=== PATIENT | male | born 1970 | race Caucasian/White ===

== ENCOUNTER 2016-10-24 04:54 | Inpatient (IN) | payer BC ==
--- NOTE | ~2016-10-24 | HP ---
History And Physical [id number] [place]. [address] NAME: MAY LEE : 66 STATUS : ADM IN [facility]#: [id number] AGE: 46 ADM/REG DATE : 10/24/16 MR#: [id number] REPORT SERV DATE: 10/24/16 DICTATED BY: ORLANDO ORONA DATE: 10/24/16 REPORT STATUS : Draft TRANSCRIBED BY: MODYaquelin DATE: 10/24/16 DATE OF ADMISSION: 10/24/2016 CARDIOLOGY ADMISSION HISTORY AND PHYSICAL IDENTIFYING DATA: The patient is a 46-year-old man with no previous cardiovascular history. CHIEF COMPLAINT: Waxing and waning chest pain since last Sunday with abrupt worsening early this morning. HISTORY OF PRESENT ILLNESS: Mr. Lee is a 46-year-old man with no previous cardiovascular history. He was in his usual state of health until about last Sunday. The patient began to notice a substernal chest pain associated with generalized fatigue. This apparently worsened when the patient was working and lifting heavy objects. The patient did not immediately seek medical attention; however, the pain progressively worsened until it became very severe early this morning. The patient reports a 10/10, left-sided, and substernal chest pain which had a heaviness component associated with a sharp pain between his shoulder blades. This prompted an emergency room visit to [facility]. There, the patient's initial 12-lead EKG showed ST-segment depression in the precordial leads. The patient's pain was not relieved with medical therapy. He later developed inferior ST-segment elevation. DICTATION ENDS HERE. KAMILLE/CHADWICK Orlando Orona MD / [id number] CC: Orlando Orona MD
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
[2016-10-24 09:24] LABS: CK-MB 75.4 NG/ML
[2016-10-24 09:25] LABS: CKMB INDEX (NOT ORD) 9.5; TROPONIN I 10.8 NG/ML (<0.05)
[2016-10-24 15:25] LABS: A/G RATIO 1.1 (0.7-1.9); ALBUMIN 3.1 G/DL (3.5-5.0); ALKALINE PHOSPHATASE 68 U/L (45-117); BUN (BLOOD UREA NITROGEN) 7 MG/DL (6-23); CALCIUM, SERUM 8.2 MG/DL (8.5-10.4); CHLORIDE, SERUM 109 MMOL/L (96-112); CO2 (CARBON DIOXIDE) 22 MMOL/L (24-34); CREATININE 0.93 MG/DL (0.70-1.30); FREE T4 1.07 NG/DL (0.76-1.46); GFR AFRICAN AMERICAN 112 ML/MIN (>=60); GFR NON AFRICAN AMERICAN 97 ML/MIN (>=60); GLOBULIN 2.7 G/DL (2.5-4.1); GLUCOSE, SERUM 100 MG/DL (60-99); SGPT(ALT) 27 U/L (5-65); SODIUM, SERUM 140 MMOL/L (135-148); TOTAL BILIRUBIN 0.5 MG/DL (0-1.2); TOTAL PROTEIN 5.8 G/DL (6.0-8.5)
[2016-10-24 15:26] LABS: POTASSIUM, SERUM 4.5 MMOL/L (3.5-5.3); SGOT(AST) 157 U/L (5-40)
[2016-10-24 18:29] LABS: BASOPHILS 0.3 %; BASOPHILS ABSOLUTE 0.03 10/3/uL (0.0-0.16); EOSINOPHILS 2.3 %; HEMATOCRIT 38.6 % (40.0-51.0); HEMOGLOBIN 13.1 g/dL (13.6-17.8); LYMPHOCYTES 30.2 %; LYMPHOCYTES ABSOLUTE 2.66 10/3/uL (0.67-4.30); MANUAL DIFF NO %; MEAN CORPUS HGB CONC 33.9 g/dL (32.0-36.0); MEAN CORPUSCULAR HEMOGLOB 30.8 pg (26.0-34.0); MEAN CORPUSCULAR VOLUME 90.6 fL (80-100); MEAN PLATELET VOLUME 10.6 fL (9.2-13.0); MONOCYTES 7.5 %; MONOCYTES ABSOLUTE 0.66 10/3/uL (0.21-1.20); NEUTROPHILS 59.7 %; NEUTROPHILS ABSOLUTE 5.26 10/3/uL (2.02-8.40); PLATELET COUNT 181 10/3/uL (150-400); RBC DISTRIBUTION WIDTH 13.8 % (12.0-16.0); RED CELL COUNT 4.26 10/6/uL (4.7-6.1); WHITE BLOOD CELLS 8.8 10/3/uL (4.5-10.5)
[2016-10-24] MEDS ORDERED: APPLE CIDER VINEGAR PO (18:55)
[2016-10-24 18:58] LABS: CK-MB 137.5 NG/ML
[2016-10-24 19:00] LABS: CKMB INDEX (NOT ORD) 9.2; TROPONIN I 39.4 NG/ML (<0.05)
[2016-10-25 01:30] LABS: BASOPHILS 0.3 %; BASOPHILS ABSOLUTE 0.02 10/3/uL (0.0-0.16); EOSINOPHILS 2.4 %; EOSINOPHILS ABSOLUTE 0.17 10/3/uL (0.0-0.53); HEMATOCRIT 36.2 % (40.0-51.0); HEMOGLOBIN 12.3 g/dL (13.6-17.8); IMMATURE GRANULOCYTES 0.1 %; IMMATURE GRANULOCYTES ABSOLUTE 0.01 10/3/uL (0.0-0.11); LYMPHOCYTES 33.9 %; LYMPHOCYTES ABSOLUTE 2.38 10/3/uL (0.67-4.30); MEAN CORPUSCULAR HEMOGLOB 30.6 pg (26.0-34.0); MEAN PLATELET VOLUME 10.8 fL (9.2-13.0); MONOCYTES 8.1 %; MONOCYTES ABSOLUTE 0.57 10/3/uL (0.21-1.20); NEUTROPHILS 55.2 %; NEUTROPHILS ABSOLUTE 3.88 10/3/uL (2.02-8.40); PLATELET COUNT 181 10/3/uL (150-400); RED CELL COUNT 4.02 10/6/uL (4.7-6.1)
[2016-10-25 01:34] LABS: MANUAL DIFF NO %
[2016-10-25 01:50] LABS: BUN (BLOOD UREA NITROGEN) 9 MG/DL (6-23); CALCIUM, SERUM 7.9 MG/DL (8.5-10.4); CHLORIDE, SERUM 106 MMOL/L (96-112); CHOL/HDL RATIO(NOT ORDER) 5.3 (0-5); CHOLESTEROL 176 MG/DL (< 200); CK-MB 74.1 NG/ML; CPK 988 U/L (0-200); GFR AFRICAN AMERICAN 117 ML/MIN (>=60); GFR NON AFRICAN AMERICAN 101 ML/MIN (>=60); GLUCOSE, SERUM 105 MG/DL (60-99); HDL CHOLESTEROL 33 MG/DL (> 39); LDL CHOLESTEROL 109 MG/DL (< 130); NON-HDL CHOLESTEROL 143 MG/DL (< 160); POTASSIUM, SERUM 3.9 MMOL/L (3.5-5.3); SODIUM, SERUM 141 MMOL/L (135-148); TRIGLYCERIDE 174 MG/DL (< 150)
[2016-10-25 01:51] LABS: CKMB INDEX (NOT ORD) 7.5; CO2 (CARBON DIOXIDE) 29 MMOL/L (24-34)
[2016-10-25 09:28] LABS: CK-MB 47.7 NG/ML
[2016-10-25 09:30] LABS: CKMB INDEX (NOT ORD) 6.3
[2016-10-25] MEDS ORDERED: ASAB PO (16:40)
[2016-10-25] MEDS ORDERED: LIPITOR40 PO (16:40)
[2016-10-25] MEDS ORDERED: EFFIENT10 PO (16:40)
[2016-10-25] MEDS ORDERED: LOP25 PO (16:41)
== END 2016-10-25 16:45 | disposition home or self-care (01) | DRG 247 ==
LOC: SSU2 04:54 → CVICU 07:53
PROVIDERS: Internal Medicine Cardiovascular Disease
PROC: 4A023N7 Measurement of Cardiac Sampling and Pressure, Left Heart, Percutaneous Approach (ICD-10-PCS; principal; 2016-10-24)
PROC: B2111ZZ Fluoroscopy of Multiple Coronary Arteries using Low Osmolar Contrast (ICD-10-PCS; 2016-10-24)
PROC: B2151ZZ Fluoroscopy of Left Heart using Low Osmolar Contrast (ICD-10-PCS; 2016-10-24)
PROC: 027034Z Dilation of Coronary Artery, One Artery with Drug-eluting Intraluminal Device, Percutaneous Approach (ICD-10-PCS; 2016-10-24)
DX: I21.11 ST elevation (STEMI) myocardial infarction involving right coronary artery (principal); F17.210 Nicotine dependence, cigarettes, uncomplicated; I25.10 Atherosclerotic heart disease of native coronary artery without angina pectoris; I49.8 Other specified cardiac arrhythmias
CPT/HCPCS: 71010; 80048; 80053; 80061; 82550; 82553; 83735; 84439; 84443; 84484; 85025; 85347; 93005; 93458; 99152; 99153; A9270-GY; C1725; C1769; C1874; C1887; C1894; C9606; J2250; J2405; J3010; Q9967